=== PATIENT | male | born 1965 | race Caucasian/White ===

== ENCOUNTER 2019-06-19 13:28 | Emergency (ER) | payer MEDICAID, OTHER ==
--- NOTE | 2019-06-19 13:36 | EDM.PDOC ---
ED HPI GENERAL MEDICAL PROBLEM - General Chief Complaint: Upper Extremity Injury/Pain Stated Complaint: PT FELL LAST NIGHT AND INJURED L ARM. Time Seen by Provider: 06/19/19 13:34 Source of Information: Reports: Patient History Limitations: Reports: No Limitations - History of Present Illness INITIAL COMMENTS - FREE TEXT/NARRATIVE: HISTORY AND PHYSICAL: History of present illness: Patient is a 54-year-old male who presents to the emergency room with complaints of left upper extremity pain post fall. He states he was climbing down a ladder when he missed a stop and his left upper extremity hip is that as he was coming down. Complaining of pain at the elbow and forearm area. The sella small bruise noted. Denies any numbness or tingling of the extremity. Denies hitting his head or having any loss of consciousness. Patient denies any fever, chills, headache, change in vision, syncope or near syncope. Denies any chest pain, back pain, shortness of breath or cough. Denies any GI or symptoms. Patient has been eating and drinking appropriately. Tetanus is up-to-date Review of systems: As per history of present illness and below otherwise all systems reviewed and negative. Past medical history: As per history of present illness and as reviewed below otherwise noncontributory. Surgical history: As per history of present illness and as reviewed below otherwise noncontributory. Social history: See social history for further information Family history: As per history of present illness and as reviewed below otherwise noncontributory. Physical exam: General: Well-developed and well-nourished 54-year-old male. Alert and oriented. Nontoxic appearing and in no acute distress. HEENT: Atraumatic, normocephalic, pupils equal and reactive bilaterally, negative for conjunctival pallor or scleral icterus, mucous membranes moist, trachea midline. No drooling or trismus noted. No meningeal signs. No hot potato voice noted. Lungs: Clear to auscultation, breath sounds equal bilaterally, chest nontender. Heart: S1S2, regular rate and rhythm without overt murmur Abdomen: Soft, nondistended, nontender. Skin: Healing bruise and soft tissue swelling noted to the mid left forearm. Otherwise skin is intact, warm, dry. No lesions or rashes noted. Extremities: Pain and soft tissue swelling to the mid left forearm, moves all extremities per self without difficulty or deficits, strong radial pulse, capillary refill less than 3 seconds. Neurovascular unremarkable. Neuro: Awake, alert, oriented. Cranial nerves II through XII unremarkable. Cerebellum unremarkable. Motor and sensory unremarkable throughout. Exam nonfocal. Notes: X-ray shows no acute findings. Sling was provided. The need for follow-up with the orthopedic provider was discussed. Supportive care measures were reviewed and discussed. Voices understanding and is agreeable to plan of care. Denies any further questions or concerns at this time. Diagnostics: Left elbow x-ray, left forearm x-ray Therapeutics: Sling Prescription: Diclofenac Impression: Left upper extremity injury Plan: 1. Rest, ice, elevate the affected extremity. Please wear the sling as directed. 2. Tylenol and/or Ibuprofen as needed for pain management. 3. Follow up with the Orthopedic provider as we discussed. Return to the ED as needed and as discussed. Definitive disposition and diagnosis as appropriate pending reevaluation and review of above. left arm Pain Score (Numeric/FACES): 8 - Related Data Allergies Allergy/AdvReac Type Severity Reaction Status Date / Time No Known Allergies Allergy Verified 06/19/19 13:41 Home Meds: Home Meds Diclofenac Sodium [Voltaren] 75 mg PO BIDMEALS PRN #30 tab.cr 06/19/19 [Rx] Lisinopril [Prinivil] 10 mg PO DAILY 06/19/19 [History] Review of Systems - Review of Systems Review Of Systems: ROS reveals no pertinent complaints other than HPI. ED EXAM, GENERAL - Physical Exam Exam: See Below (See dictation) Course - Vital Signs Last Recorded V/S: Last Vital Signs Temp 98.3 F 06/19/19 13:42 Pulse 77 06/19/19 13:42 Resp 18 06/19/19 13:42 BP 188/116 H 06/19/19 13:42 Pulse Ox 96 06/19/19 13:42 - Orders/Labs/Meds Orders: Active Orders 24 hr Category Date Time Status Elbow Min 3V Lt [CR] Stat Exams 06/19/19 13:47 Taken Forearm 2V Lt [CR] Stat Exams 06/19/19 13:54 Ordered DME for Discharge [COMM] Stat Oth 06/19/19 14:30 Ordered Departure - Departure Time of Disposition: 14:37 Disposition: Home, Self-Care 01 Clinical Impression: Left upper arm injury Qualifiers: Encounter type: initial encounter Qualified Code(s): S49.92XA - Unspecified injury of left shoulder and upper arm, initial encounter - Discharge Information Prescriptions: Diclofenac Sodium [Voltaren] 75 mg PO BIDMEALS PRN #30 tab.cr PRN Reason: Pain Referrals: PCP,None [Primary Care Provider] - Forms: ED Department Discharge Additional Instructions: The following information is given to patients seen in the emergency department who are being discharged to home. This information is to outline your options for follow-up care. We provide all patients seen in our emergency department with a follow-up referral. The need for follow-up, as well as the timing and circumstances, are variable depending upon the specifics of your emergency department visit. If you don't have a primary care physician on staff, we will provide you with a referral. We always advise you to contact your personal physician following an emergency department visit to inform them of the circumstance of the visit and for follow-up with them and/or the need for any referrals to a consulting specialist. The emergency department will also refer you to a specialist when appropriate. This referral assures that you have the opportunity for follow-up care with a specialist. All of these measure are taken in an effort to provide you with optimal care, which includes your follow-up. Under all circumstances we always encourage you to contact your private physician who remains a resource for coordinating your care. When calling for follow-up care, please make the office aware that this follow-up is from your recent emergency room visit. If for any reason you are refused follow-up, please contact the [facility] Emergency Department at and asked to speak to the emergency department charge nurse. [facility] [address] [place] [id number] [facility] Specialty Care - Orthopedic [facility] Professional Building [address] [place] [address], [address] [place] [address] 1. Rest, ice, elevate the affected extremity. Please wear the sling as directed. 2. Tylenol and/or Ibuprofen as needed for pain management. 3. Follow up with the Orthopedic provider as we discussed. Return to the ED as needed and as discussed. - My Orders Last 24 Hours: My Active Orders 06/19/19 13:47 Elbow Min 3V Lt [CR] Stat 06/19/19 13:54 Forearm 2V Lt [CR] Stat 06/19/19 14:30 DME for Discharge [COMM] Stat - Assessment/Plan Last 24 Hours: My Active Orders 06/19/19 13:47 Elbow Min 3V Lt [CR] Stat 06/19/19 13:54 Forearm 2V Lt [CR] Stat 06/19/19 14:30 DME for Discharge [COMM] Stat
--- NOTE | 2019-06-19 14:49 | CR ---
EXAMINATION: Left forearm and left elbow HISTORY: Pain COMPARISON: None TECHNIQUE: 2 views of the left forearm and 3 views of the left elbow FINDINGS: There is no acute osseous abnormality, dislocation, or fracture. Bone mineralization and joint spaces are preserved. No elbow joint effusion. Mild soft tissue swelling overlying the olecranon. Radiocarpal and radiocapitellar alignments appear intact. Subcortical cystic change noted within the lunate. IMPRESSION: Dorsal soft tissue swelling without an acute osseous abnormality.
== END 2019-06-19 14:58 | disposition home or self-care (01) ==
LOC: MW.ED 13:28
DX: S50.12XA Contusion of left forearm, initial encounter (principal); Z79.899 Other long term (current) drug therapy; W11.XXXA Fall on and from ladder, initial encounter
CPT/HCPCS: 73080-26-LT; 73080-LT; 73090-26-LT; 73090-LT; 99283; 99283-25